=== PATIENT | female | born 1950 | race Two or more races ===

== ENCOUNTER 2021-12-12 13:15 | Outpatient (CLI) | payer MEDICARE, OTHER ==
[2021-12-12 14:49] LABS: BASOPHILS % (AUTO) 0.4 % (0.0-2.0); EOSINOPHILS % (AUTO) 3.4 % (0.0-6.0); HEMATOCRIT 40 % (33-45); HEMOGLOBIN 13.2 g/dL (11.5-14.8); LYMPHOCYTES # (AUTO) 2.1 K/uL (0.8-4.8); LYMPHOCYTES % (AUTO) 32.1 % (20.0-44.0); MEAN CORPUSCULAR HGB CONC 33 g/dl (31.0-36.0); MEAN CORPUSCULAR VOLUME 98 fL (82-100); MONOCYTES % (AUTO) 14.3 % (2.0-12.0); NEUTROPHILS # (AUTO) 3.3 K/uL (1.8-8.9); NEUTROPHILS % (AUTO) 49.8 % (43.0-81.0); PLATELET COUNT (AUTO) 237 K/uL (150-450); RED BLOOD CELL COUNT(AUTO) 4.06 MIL/uL (4.0-5.2); WHITE BLOOD COUNT (AUTO) 6.7 K/uL (4.3-11.0)
== END 2021-12-12 23:59 | disposition home or self-care (01) ==
LOC: WOU 13:15
PROVIDERS: ATTEND Podiatrist Foot & Ankle Surgery
DX: M79.672 Pain in left foot (principal); M79.671 Pain in right foot; M06.072 Rheumatoid arthritis without rheumatoid factor, left ankle and foot; M20.11 Hallux valgus (acquired), right foot; M20.22 Hallux rigidus, left foot; L84 Corns and callosities; Z96.652 Presence of left artificial knee joint; I10 Essential (primary) hypertension; E78.5 Hyperlipidemia, unspecified; Z79.899 Other long term (current) drug therapy
CPT/HCPCS: 73630 ×2; 84145; 85025; 85652; 36415; 86140; G0463

== ENCOUNTER 2021-12-17 14:33 | Outpatient (CLI) | payer MEDICARE, OTHER | END 2021-12-17 23:59 | disposition home or self-care (01) | LOC: MRI 14:33 | PROVIDERS: ATTEND Podiatrist Foot & Ankle Surgery | DX: M86.8X7 Other osteomyelitis, ankle and foot (principal); L97.529 Non-pressure chronic ulcer of other part of left foot with unspecified severity; S93.112 Dislocation of interphalangeal joint of left great toe; X58.XXXD Exposure to other specified factors, subsequent encounter; Z89.422 Acquired absence of other left toe(s) | CPT/HCPCS: 73718-TC ==

== ENCOUNTER 2022-04-03 13:30 | Outpatient (CLI) | payer MEDICARE, OTHER ==
[2022-04-03] MEDS ORDERED: UREA 10% -AHA 4% CREAM 57 GM TUBE ONE (14:03)
== END 2022-04-03 23:59 | disposition home or self-care (01) ==
LOC: WOU 13:30
PROVIDERS: ATTEND Podiatrist Foot & Ankle Surgery
DX: B35.1 Tinea unguium (principal); L60.0 Ingrowing nail; L84 Corns and callosities; M20.22 Hallux rigidus, left foot; M20.12 Hallux valgus (acquired), left foot; M20.11 Hallux valgus (acquired), right foot; M06.072 Rheumatoid arthritis without rheumatoid factor, left ankle and foot; M79.675 Pain in left toe(s); M79.674 Pain in right toe(s); M79.672 Pain in left foot; M79.671 Pain in right foot; Z79.899 Other long term (current) drug therapy
CPT/HCPCS: G0463

== ENCOUNTER 2022-05-15 14:30 | Outpatient (CLI) | payer MEDICARE, OTHER | END 2022-05-15 23:59 | disposition home or self-care (01) | LOC: WOU 14:30 | PROVIDERS: ATTEND Podiatrist Foot & Ankle Surgery | DX: M20.22 Hallux rigidus, left foot (principal); M20.11 Hallux valgus (acquired), right foot; L60.3 Nail dystrophy; E11.9 Type 2 diabetes mellitus without complications; M06.072 Rheumatoid arthritis without rheumatoid factor, left ankle and foot; M79.672 Pain in left foot; M79.671 Pain in right foot; Z79.899 Other long term (current) drug therapy; Z89.422 Acquired absence of other left toe(s) | CPT/HCPCS: G0463 ==

== ENCOUNTER 2022-07-17 13:55 | Outpatient (CLI) | payer MEDICARE, OTHER ==
[2022-07-17] MEDS ORDERED: MUPIROCIN 2% CREAM 15 GM TUBE TP ONE (14:11)
== END 2022-07-17 23:59 | disposition home or self-care (01) ==
LOC: WOU 13:55
PROVIDERS: ATTEND Podiatrist Foot & Ankle Surgery
DX: L02.612 Cutaneous abscess of left foot (principal); L03.032 Cellulitis of left toe; M20.22 Hallux rigidus, left foot; M20.11 Hallux valgus (acquired), right foot; M06.072 Rheumatoid arthritis without rheumatoid factor, left ankle and foot; M79.672 Pain in left foot; M79.671 Pain in right foot; I10 Essential (primary) hypertension; E78.5 Hyperlipidemia, unspecified; Z96.652 Presence of left artificial knee joint
CPT/HCPCS: 10060

== ENCOUNTER 2022-07-24 13:10 | Outpatient (CLI) | payer MEDICARE, OTHER | END 2022-07-24 23:59 | disposition home or self-care (01) | LOC: WOU 13:10 | PROVIDERS: ATTEND Podiatrist Foot & Ankle Surgery | DX: T81.89XA Other complications of procedures, not elsewhere classified, initial encounter (principal); L03.032 Cellulitis of left toe; M20.22 Hallux rigidus, left foot; M20.11 Hallux valgus (acquired), right foot; M79.672 Pain in left foot; M79.671 Pain in right foot; M06.072 Rheumatoid arthritis without rheumatoid factor, left ankle and foot; I10 Essential (primary) hypertension; E78.5 Hyperlipidemia, unspecified; Z89.422 Acquired absence of other left toe(s); Z79.899 Other long term (current) drug therapy | CPT/HCPCS: 11042 ==

== ENCOUNTER 2022-07-31 13:34 | Outpatient (CLI) | payer MEDICARE, OTHER | END 2022-07-31 23:59 | disposition home or self-care (01) | LOC: WOU 13:34 | PROVIDERS: ATTEND Podiatrist Foot & Ankle Surgery | DX: T81.89XA Other complications of procedures, not elsewhere classified, initial encounter (principal); M06.072 Rheumatoid arthritis without rheumatoid factor, left ankle and foot; L03.032 Cellulitis of left toe; M20.22 Hallux rigidus, left foot; M20.11 Hallux valgus (acquired), right foot; M79.672 Pain in left foot; M79.671 Pain in right foot; I10 Essential (primary) hypertension; M06.9 Rheumatoid arthritis, unspecified | CPT/HCPCS: 11042 ==

== ENCOUNTER 2022-08-21 13:54 | Outpatient (CLI) | payer MEDICARE, OTHER | END 2022-08-21 23:59 | disposition home or self-care (01) | LOC: WOU 13:54 | PROVIDERS: ATTEND Podiatrist Foot & Ankle Surgery | DX: M20.22 Hallux rigidus, left foot (principal); M20.11 Hallux valgus (acquired), right foot; L84 Corns and callosities; M06.072 Rheumatoid arthritis without rheumatoid factor, left ankle and foot; B35.1 Tinea unguium; M79.672 Pain in left foot; M79.671 Pain in right foot; Z89.422 Acquired absence of other left toe(s); Z89.421 Acquired absence of other right toe(s) | CPT/HCPCS: G0463 ==

== ENCOUNTER 2022-10-09 13:46 | Outpatient (CLI) | payer MEDICARE, OTHER | END 2022-10-09 23:59 | disposition home or self-care (01) | LOC: WOU 13:46 | PROVIDERS: ATTEND Podiatrist Foot & Ankle Surgery | DX: L84 Corns and callosities (principal); M20.22 Hallux rigidus, left foot; M20.11 Hallux valgus (acquired), right foot; M06.072 Rheumatoid arthritis without rheumatoid factor, left ankle and foot; L60.3 Nail dystrophy | CPT/HCPCS: G0463 ==

== ENCOUNTER 2023-12-26 09:14 | Outpatient (CLI) | payer MEDICARE, OTHER ==
[2023-12-26] MEDS ORDERED: CADEXOMER IODINE UD 5 GM TUBE ONE (09:23)
== END 2023-12-26 23:59 | disposition home or self-care (01) ==
LOC: WOU 09:14
PROVIDERS: ATTEND Podiatrist Foot & Ankle Surgery
DX: L89.894 Pressure ulcer of other site, stage 4 (principal); L89.893 Pressure ulcer of other site, stage 3; M20.22 Hallux rigidus, left foot; M20.11 Hallux valgus (acquired), right foot; M06.072 Rheumatoid arthritis without rheumatoid factor, left ankle and foot; L84 Corns and callosities; M79.672 Pain in left foot; M79.671 Pain in right foot

== ENCOUNTER 2024-02-10 06:17 | Day surgery (SDC) | payer MEDICARE, OTHER ==
[2024-02-10] MEDS ORDERED: ANESTHESIA TRAY IN PYXIS 1 EA TRAY MC ONE (06:29)
[2024-02-10] MEDS ORDERED: LIDOCAINE 1% INJ 50 ML MDV IJ ONE (06:29)
[2024-02-10] MEDS ORDERED: BUPIVACAINE 0.5 % PF 150 MG/30 ML VIAL ONE (06:29)
[2024-02-10] MEDS ORDERED: LIDOCAINE 1%-EPI 1:100,000 20 ML VIAL ONE (06:30)
[2024-02-10] MEDS ORDERED: FENTANYL PF 250MCG/5ML AMPUL ONE (06:55)
[2024-02-10] MEDS ORDERED: ROCURONIUM BROMIDE 50 MG/5 ML ONE (06:56)
== END 2024-02-10 10:25 | disposition home or self-care (01) ==
LOC: DS 06:17
PROVIDERS: ATTEND Podiatrist Foot & Ankle Surgery
DX: M20.11 Hallux valgus (acquired), right foot (principal); L97.519 Non-pressure chronic ulcer of other part of right foot with unspecified severity; M06.9 Rheumatoid arthritis, unspecified; M81.0 Age-related osteoporosis without current pathological fracture; M19.071 Primary osteoarthritis, right ankle and foot; I10 Essential (primary) hypertension; E78.5 Hyperlipidemia, unspecified; Z79.899 Other long term (current) drug therapy
CPT/HCPCS: 28750; 73630 ×2; J3490 ×4; J2704; J7030; A4217; C1713 ×7; J3010

== ENCOUNTER 2024-04-15 13:25 | Outpatient (CLI) | payer MEDICARE, OTHER | END 2024-04-15 23:59 | disposition home or self-care (01) | LOC: RAD 13:25 | PROVIDERS: ATTEND Podiatrist Foot & Ankle Surgery | DX: M20.41 Other hammer toe(s) (acquired), right foot (principal); M25.471 Effusion, right ankle | CPT/HCPCS: 73630-TC ==

== ENCOUNTER 2025-01-18 06:57 | Day surgery (SDC) | payer MEDICARE, OTHER ==
[~2025-01-18 06:57] MED LIST: BUPIVACAINE 0.5 % PF 150 MG/30 ML VIAL ONE; LIDOCAINE HCL/MPF 1% 30 ML VIAL IJ ONE; POLYMYXIN B SULFATE 0 UNITS ONE; VANCOMYCIN 1 GM VIAL ONE
[2025-01-18] MEDS ORDERED: FENTANYL PF 100MCG/2ML AMPUL ONE (07:37)
[2025-01-18] MEDS ORDERED: FAMOTIDINE/PF INJ 20 MG/2 ML VIAL IV ONE (07:38)
[2025-01-18] MEDS ORDERED: LIDOCAINE HCL/MPF 1% 30 ML VIAL IJ ONE (08:00)
== END 2025-01-18 10:07 | disposition home or self-care (01) ==
LOC: DS 06:57
PROVIDERS: ATTEND Podiatrist Foot & Ankle Surgery
DX: T84.84XA Pain due to internal orthopedic prosthetic devices, implants and grafts, initial encounter (principal); M20.40 Other hammer toe(s) (acquired), unspecified foot; M06.9 Rheumatoid arthritis, unspecified; I10 Essential (primary) hypertension; Z96.652 Presence of left artificial knee joint; Z79.899 Other long term (current) drug therapy; Z98.890 Other specified postprocedural states; X58.XXXA Exposure to other specified factors, initial encounter; Y93.89 Activity, other specified; Y83.1 Surgical operation with implant of artificial internal device as the cause of abnormal reaction of the patient, or of later complication, without mention of misadventure at the time of the procedure; Y99.8 Other external cause status
CPT/HCPCS: 20680; 73620; 73630; 88300; A6402; J0690; J1308; J2704; J3010; J3490; J7030; J3373